=== PATIENT | male | born 1975 | race American Indian/Alaskan Native ===

== ENCOUNTER 2019-04-25 08:46 | Outpatient (CLI) | payer OTHER ==
--- NOTE | 2019-04-25 09:37 | XRay Report ---
Lumbar spine-3 views INDICATION: BACK PAIN. COMPARISON: None. IMPRESSION: Normal alignment. No significant discogenic DJD or facet arthropathy. No acute osseous or soft tissue abnormality. Signer Name: Yvan Arreola MD Signed: 04/25/2019 9:33 AM Workstation Name: [id number]
== END 2019-04-25 08:47 | disposition home or self-care (01) ==
LOC: XRAY 08:46
PROVIDERS: ATTEND Internal Medicine
DX: M54.5 Low back pain (principal); G43.909 Migraine, unspecified, not intractable, without status migrainosus; F43.10 Post-traumatic stress disorder, unspecified
CPT/HCPCS: 72100